=== PATIENT | male | born 1950 | race Caucasian/White ===

== ENCOUNTER 2017-01-08 10:30 | Emergency (ER) | payer MEDICARE ==
[2017-01-08 10:30] VITALS: BMI 21.5
[2017-01-08 11:17] VITALS: BP 138/76; PULSE 94; RESP 18; TEMP 98.1; O2SAT 97
--- NOTE | 2017-01-08 11:32 | ED PDOC ---
Upper Extremity Pain/Injury Time Seen by Provider: 01/08/17 11:32 Chief Complaint (Nursing): Upper Extremity Problem/Injury Chief Complaint (Provider): hand pain History Per: Patient Additional Complaint(s): Right-hand dominant male presents with pain and swelling to right hand status post injury 1 week ago. Patient states he was lifting heavy object and this caused injury to hand. Patient did not seek medical attention at that time and presents today with persistent pain and swelling. He is able to move all digits of right hand but has pain when doing so. Patient has not taken any meds for pain relief. Past Medical History Reviewed: Historical Data, Nursing Documentation, Vital Signs Vital Signs: Last Vital Signs Temp 98.1 F 01/08/17 11:13 Pulse 94 H 01/08/17 11:13 Resp 18 01/08/17 11:13 BP 138/76 01/08/17 11:13 Pulse Ox 97 01/08/17 11:13 - Medical History PMH: Anxiety, Asthma, COPD, Depression, HTN, Schizophrenia - Surgical History Surgical History: Appendectomy, Tonsillectomy - Family History Family History: States: No Known Family Hx - Living Arrangements Living Arrangements: With Family - Social History Current smoker - smoking cessation education provided: Yes Alcohol: None Drugs: Denies - Home Medications Home Medications: Ambulatory Orders Medication Instructions Recorded Lisinopril/Hydrochlorothiazide 1 tab PO DAILY 12/29/14 [Lisinopril-Hydrochlorothiazide 12.5 mg-10 mg] Metformin Hydrochloride [Metformin] 500 mg PO BID 12/29/14 Haloperidol [Haldol] 1 tab PO Q8 08/02/16 Ibuprofen [Motrin] 600 mg PO Q6 PRN #15 tab 01/08/17 - Allergies Allergies/Adverse Reactions: Allergies Allergy/AdvReac Type Severity Reaction Status Date / Time Penicillins Allergy RASH Verified 01/08/17 11:12 Review of Systems ROS Statement: Except As Marked, All Systems Reviewed And Found Negative Musculoskeletal: Positive for: Other (right hand injury ) Physical Exam - Reviewed Nursing Documentation Reviewed: Yes Vital Signs Reviewed: Yes - Physical Exam Appears: Positive for: Well, Non-toxic, No Acute Distress Skin: Negative for: Rash Eye Exam: Positive for: Normal appearance Extremity: Positive for: Other (Mild tenderness and swelling noted to dorsal aspect of right hand, full range of motion of all digits, normal distal sensation, normal capillary refill, no warmth to palpation, no cellulitis or open wounds, full rom right wrist with no snuff box tenderness) Neurologic/Psych: Positive for: Alert, Oriented - ECG O2 Sat by Pulse Oximetry: 97 Pulse Ox Interpretation: Normal - Other Rad right hand x-ray X-Ray: Interpreted by Me, Viewed By Me X-Ray Interpretation: no fx, no dis Medical Decision Making Medical Decision Makin66 year old with pain and swelling to right hand Plan: PO motrin X-ray right hand X-ray negative. Rx motrin given for pain, Referral given to hand bridge/structure inspection team leader for follow up. Nahum wrap/brace to hand was declined by patient. Disposition - Clinical Impression Clinical Impression: Hand contusion - Patient ED Disposition Is Patient to be Admitted: No Counseled Patient/Family Regarding: Studies Performed, Diagnosis, Need For Followup, Rx Given - Disposition Referrals: Rommel Montes MD [Medical Doctor] - Disposition: Routine/Home Disposition Time: 12:49 Condition: STABLE Additional Instructions: Ice, rest and elevate affected area. Take prescription meds as directed as needed for pain. Follow up with hand specialist or primary doctor for any persistent symptoms. Prescriptions: Ibuprofen [Motrin] 600 mg PO Q6 PRN #15 tab PRN Reason: Pain, Moderate (4-7) Instructions: Contusion in Adults (DC), Hand Sprain (ED)
--- NOTE | 2017-01-08 13:23 | RAD ---
PROCEDURE: Right Hand Radiographs. HISTORY: trauma COMPARISON: None. FINDINGS: BONES: Normal. No fracture. JOINTS: Normal. No osteoarthritic changes. SOFT TISSUES: Normal. OTHER FINDINGS: None. IMPRESSION: Normal right hand radiographs.
== END 2017-01-08 13:13 | disposition home or self-care (01) ==
LOC: H.ER 10:30
DX: S60.221A Contusion of right hand, initial encounter (principal); X50.0XXA Overexertion from strenuous movement or load, initial encounter; I10 Essential (primary) hypertension; F17.210 Nicotine dependence, cigarettes, uncomplicated; Z88.0 Allergy status to penicillin

== ENCOUNTER 2017-03-12 11:06 | Emergency (ER) | payer MEDICARE ==
[2017-03-12 11:21] VITALS: BP 133/83; PULSE 91; RESP 16; TEMP 98.3; O2SAT 99; BMI 21.3
--- NOTE | 2017-03-12 12:04 | ED PDOC ---
HPI: Skin/Bite Injury Time Seen by Provider: 03/12/17 11:28 Chief Complaint (Nursing): Male Genitourinary Chief Complaint (Provider): Rectal pain History Per: Patient History/Exam Limitations: no limitations Onset/Duration Of Symptoms: Days (x 3 days) Current Symptoms Are (Timing): Still Present Additional Complaint(s): Rome Funes is a 66-year-old male with a history of hemorrhoids who presents to the emergency department with complains of rectal pain and swelling , ongoing x 3 days. Patient denies bleeding. He admits to taking Preparation H without relief of symptoms. PMD: Past Medical History Reviewed: Historical Data, Nursing Documentation, Vital Signs Vital Signs: Last Vital Signs Temp 98.3 F 03/12/17 11:20 Pulse 91 H 03/12/17 11:20 Resp 16 03/12/17 11:20 BP 133/83 03/12/17 11:20 Pulse Ox 99 03/12/17 13:12 - Medical History PMH: Anxiety, Asthma, COPD, Depression, HTN, Schizophrenia Denies: Chronic Kidney Disease Other PMH: Hemorrhoids - Surgical History Surgical History: Appendectomy, Tonsillectomy - Family History Family History: States: Unknown Family Hx - Immunization History Hx Tetanus Toxoid Vaccination: No Hx Influenza Vaccination: No Hx Pneumococcal Vaccination: No - Home Medications Home Medications: Ambulatory Orders Medication Instructions Recorded Lisinopril/Hydrochlorothiazide 1 tab PO DAILY 12/29/14 [Lisinopril-Hydrochlorothiazide 12.5 mg-10 mg] Metformin Hydrochloride [Metformin] 500 mg PO BID 12/29/14 Haloperidol [Haldol] 1 tab PO Q8 08/02/16 Ibuprofen [Motrin] 600 mg PO Q6 PRN #15 tab 01/08/17 Hydrocortisone 2.5% (Rectal) 30 applic [place] BID PRN #1 tube 03/12/17 [Anusol-HC] - Allergies Allergies/Adverse Reactions: Allergies Allergy/AdvReac Type Severity Reaction Status Date / Time Penicillins Allergy RASH Verified 01/08/17 11:12 Review of Systems ROS Statement: Except As Marked, All Systems Reviewed And Found Negative Genitourinary Male: Positive for: Other (Rectal pain and swelling) Physical Exam - Reviewed Nursing Documentation Reviewed: Yes Vital Signs Reviewed: Yes - Physical Exam Appears: Positive for: Well, Non-toxic, No Acute Distress Head Exam: Positive for: ATRAUMATIC, NORMAL INSPECTION, NORMOCEPHALIC Skin: Positive for: Normal Color, Warm, Dry Eye Exam: Positive for: Normal appearance Neck: Positive for: Normal, Painless ROM, Supple Cardiovascular/Chest: Positive for: Regular Rate, Rhythm Respiratory: Positive for: CNT, Normal Breath Sounds Gastrointestinal/Abdominal: Positive for: Normal Exam, Bowel Sounds, Soft. Negative for: Tenderness Rectal: Positive for: Hemorrhoids (Multiple external hemorrhoids, non-thrombosed ). Negative for: Normal Exam, Other (discharge and bleeding) Extremity: Positive for: Normal ROM Neurologic/Psych: Positive for: Alert, Oriented - ECG O2 Sat by Pulse Oximetry: 99 (RA) Pulse Ox Interpretation: Normal Medical Decision Making Medical Decision Making: Time: 12:30 Initial Impression: Hemorrhoids Initial Plan: * Hydrocortisone 25 mg MT * Disposition Time: 13:04 Upon provider evaluation patient is feeling better, medically stable, and requires no further treatment in the ED at this time. Patient will be discharged home with Rx for Hydrocortisone 2.5% MT. Counseling was provided and all questions were answered regarding diagnosis and need for follow up. There is agreement to discharge plan. Return if symptoms persist or worsen. Scribe Attestation: Documented by Lizzeth Molina, acting as a scribe for Deyanira Michael MD. Provider Scribe Attestation: All medical record entries made by the Scribe were at my direction and personally dictated by me. I have reviewed the chart and agree that the record accurately reflects my personal performance of the history, physical exam, medical decision making, and the department course for this patient. I have also personally directed, reviewed, and agree with the discharge instructions and disposition. Disposition - Clinical Impression Clinical Impression: Hemorrhoids, external - Patient ED Disposition Is Patient to be Admitted: No Doctor Will See Patient In The: Office - Disposition Referrals: [facility] [Outside] Disposition: Routine/Home Disposition Time: 13:04 Condition: STABLE Prescriptions: Hydrocortisone 2.5% (Rectal) [Anusol-HC] 30 applic [place] BID PRN #1 tube PRN Reason: Hemorrhoids Instructions: Hemorrhoids (ED)
[2017-03-12] MEDS ORDERED: Anusol Suppository ONE (12:16)
== END 2017-03-12 12:35 | disposition home or self-care (01) ==
LOC: H.ER 11:06
DX: K64.8 Other hemorrhoids (principal); F20.9 Schizophrenia, unspecified; F32.9 Major depressive disorder, single episode, unspecified; F41.9 Anxiety disorder, unspecified; I10 Essential (primary) hypertension; Z79.84 Long term (current) use of oral hypoglycemic drugs; Z88.0 Allergy status to penicillin

== ENCOUNTER 2017-12-12 10:57 | Emergency (ER) | payer MEDICARE ==
[2017-12-12 11:02] VITALS: BMI 22.3
[2017-12-12 11:03] VITALS: TEMP 97.8; O2SAT 99
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
--- NOTE | 2017-12-12 14:29 | RAD ---
PROCEDURE: Pelvis, right hip HISTORY: Right hip pain COMPARISON: None TECHNIQUE: Standard protocol for this study/examination. FINDINGS: There are no osseous abnormalities to suggest fracture. The pelvic ring is intact. Preserved femoral-acetabular relationship. Negative study for protrusio, subluxation or dislocation. Degenerative changes: Mild. IMPRESSION: No acute findings related to/accounting for the clinical presentation.
[2017-12-12 14:44] VITALS: BP 128/78; PULSE 88; RESP 18
== END 2017-12-12 14:44 | disposition home or self-care (01) ==
LOC: SUPCPDRO 10:57 → H.ER 10:57
DX: R10.30 Lower abdominal pain, unspecified (principal); I10 Essential (primary) hypertension; E11.9 Type 2 diabetes mellitus without complications; Z79.84 Long term (current) use of oral hypoglycemic drugs; Z88.0 Allergy status to penicillin

== ENCOUNTER 2018-04-08 22:03 | Emergency (ER) | payer MEDICARE ==
[2018-04-08 22:06] VITALS: BMI 22.3
[2018-04-08 22:41] VITALS: BP 160/77; PULSE 80; RESP 16; TEMP 98.3; O2SAT 97
--- NOTE | 2018-04-08 22:47 | ED PDOC ---
HPI: General Adult Time Seen by Provider: 04/08/18 22:46 Chief Complaint (Nursing): Medical Clearance Chief Complaint (Provider): eval History Per: Patient Additional Complaint(s): 67-year-old male presents to emergency department requesting IM administration of Haldol. Patient presents with his own medication and states he just needs someone to administer it. He offers no other complaints or issues at this time. Past Medical History Reviewed: Historical Data, Nursing Documentation, Vital Signs Vital Signs: Last Vital Signs Temp 98.3 F 04/08/18 22:40 Pulse 80 04/08/18 22:40 Resp 16 04/08/18 22:40 BP 160/77 H 04/08/18 22:40 Pulse Ox 97 04/08/18 23:18 - Medical History PMH: Anxiety, Asthma, COPD, Depression, HTN, Schizophrenia - Surgical History Surgical History: Appendectomy, Tonsillectomy - Family History Family History: States: No Known Family Hx - Social History Current smoker - smoking cessation education provided: No Alcohol: None Drugs: Denies - Home Medications Home Medications: Ambulatory Orders Medication Instructions Recorded Lisinopril/Hydrochlorothiazide 1 tab PO DAILY 12/29/14 [Lisinopril-Hydrochlorothiazide 12.5 mg-10 mg] Metformin Hydrochloride [Metformin] 500 mg PO BID 12/29/14 Haloperidol [Haldol] 1 tab PO Q8 08/02/16 Ibuprofen [Motrin] 600 mg PO Q6 PRN #15 tab 01/08/17 Hydrocortisone 2.5% (Rectal) 30 applic [place] BID PRN #1 tube 03/12/17 [Anusol-HC] - Allergies Allergies/Adverse Reactions: Allergies Allergy/AdvReac Type Severity Reaction Status Date / Time Penicillins Allergy RASH Verified 01/08/17 11:12 Review of Systems ROS Statement: Except As Marked, All Systems Reviewed And Found Negative Constitutional: Negative for: Fever Cardiovascular: Negative for: Chest Pain Respiratory: Negative for: Cough Gastrointestinal: Negative for: Nausea, Vomiting Psych: Negative for: Suicidal ideation Physical Exam - Reviewed Nursing Documentation Reviewed: Yes Vital Signs Reviewed: Yes - Physical Exam Appears: Positive for: Well, Non-toxic, No Acute Distress Skin: Positive for: Normal Color. Negative for: Rash Eye Exam: Positive for: Normal appearance Cardiovascular/Chest: Positive for: Regular Rate, Rhythm Respiratory: Positive for: Normal Breath Sounds Neurologic/Psych: Positive for: Alert, Oriented - ECG O2 Sat by Pulse Oximetry: 97 Pulse Ox Interpretation: Normal Medical Decision Making Medical Decision Makin-year-old male here for medication administration. IM Haldol was administered by RN. Patient denies suicidal or homicidal ideation, he declines crisis consult at this time. Patient is stable for discharge. Disposition - Clinical Impression Clinical Impression: Medication administered - Patient ED Disposition Is Patient to be Admitted: No Counseled Patient/Family Regarding: Need For Followup - Disposition Referrals: [facility] [Outside] Disposition: Routine/Home Disposition Time: 23:16 Condition: STABLE Additional Instructions: Follow up with primary care doctor Instructions: Haloperidol, General (DC) Forms: [employer] (Upper Sorbian)
[2018-04-08] MEDS: Home Med 1 UNIT IM STA (23:21)
== END 2018-04-08 23:05 | disposition home or self-care (01) ==
LOC: H.ER 22:03
DX: Z51.81 Encounter for therapeutic drug level monitoring (principal); F20.9 Schizophrenia, unspecified; Z79.84 Long term (current) use of oral hypoglycemic drugs; Z88.0 Allergy status to penicillin

== ENCOUNTER 2018-05-14 01:22 | Emergency (ER) | payer MEDICARE ==
[2018-05-14 01:23] VITALS: BMI 22.3
[2018-05-14 01:47] VITALS: RESP 16
--- NOTE | 2018-05-14 02:53 | ED PDOC ---
HPI: General Adult Time Seen by Provider: 05/14/18 02:10 Chief Complaint (Nursing): Altered Mental Status Chief Complaint (Provider): Altered Mental Status History Per: Patient History/Exam Limitations: no limitations Onset/Duration Of Symptoms: Hrs Additional Complaint(s): Rome Glasgow is a 67 year old male with a past medical history of chronic anemia and schizophrenia who is presenting to the ED for evaluation. Patient states that he mistakenly read bedside clock as 7 am and reported to his meeting scheduled the next day at [facility]. He admits that he began walking to the clinic and upon arrival, he realized that it was not 7 am. Patient presents to the ED asking if he could wait in the ER until the morning so he could make his meeting. PMD: George Bear Past Medical History Reviewed: Historical Data, Nursing Documentation, Vital Signs Vital Signs: Last Vital Signs Temp 97.6 F 05/14/18 05:50 Pulse 64 05/14/18 05:50 Resp 16 05/14/18 05:50 BP 148/76 05/14/18 05:50 Pulse Ox 100 05/14/18 06:22 - Medical History PMH: Anemia, Anxiety, Asthma, COPD, Depression, HTN, Schizophrenia Denies: HIV, Chronic Kidney Disease - Surgical History Surgical History: Appendectomy, Tonsillectomy - Family History Family History: States: Unknown Family Hx - Social History Current smoker - smoking cessation education provided: No Alcohol: None Drugs: Denies - Immunization History Hx Tetanus Toxoid Vaccination: No Hx Influenza Vaccination: No Hx Pneumococcal Vaccination: No - Home Medications Home Medications: Ambulatory Orders Medication Instructions Recorded Haloperidol Lactate [Haldol] 50 mg IM QWK 05/07/18 Lisinopril/Hydrochlorothiazide 1 tab PO DAILY 05/07/18 [Lisinopril-Hctz 20-25 mg Tab] Memantine HCl/Donepezil HCl 1 cap PO DAILY 05/07/18 [Namzaric 28 mg-10 mg Capsule] Olanzapine [Olanzapine Odt] 20 mg PO HS 05/07/18 [id number] Ethyl Esters 1 GM 1 sgl PO DAILY 05/07/18 [Lovaza] metFORMIN [glucOPHAGE] 500 mg PO BID 05/07/18 Ferrous Sulfate [Feosol] 325 mg PO DAILY #30 tab 05/08/18 - Allergies Allergies/Adverse Reactions: Allergies Allergy/AdvReac Type Severity Reaction Status Date / Time Penicillins Allergy RASH Verified 05/14/18 01:47 Review of Systems ROS Statement: Except As Marked, All Systems Reviewed And Found Negative Physical Exam - Reviewed Nursing Documentation Reviewed: Yes Vital Signs Reviewed: Yes - Physical Exam Appears: Positive for: Well, Non-toxic, No Acute Distress Head Exam: Positive for: ATRAUMATIC, NORMAL INSPECTION, NORMOCEPHALIC Skin: Positive for: Normal Color, Warm, DRY Eye Exam: Positive for: EOMI, Normal appearance, PERRL ENT: Positive for: Normal ENT Inspection Neck: Positive for: Normal, Painless ROM Cardiovascular/Chest: Positive for: Regular Rate, Rhythm Respiratory: Positive for: CNT, Normal Breath Sounds Gastrointestinal/Abdominal: Positive for: Normal Exam, Soft Back: Positive for: Normal Inspection Extremity: Positive for: Normal ROM Neurologic/Psych: Positive for: Alert, Oriented - ECG O2 Sat by Pulse Oximetry: 100 (RA) Pulse Ox Interpretation: Normal Medical Decision Making Medical Decision Making: Time: 2:55 Impression: 67 year old male with schizophrenia Upon provider evaluation patient is medically stable, and requires no treatment in the ED at this time. Patient will be discharged home. Counseling was provided and all questions were answered. There is agreement to discharge plan. 6:22 Patient remained stable throughout the night in the ED. Dr. Harp made arrangements for patient to be seen for follow up in the clinic today. Upon provider evaluation patient is medically stable, and requires no further treatment in the ED at this time. Patient will be discharged home. Counseling was provided and all questions were answered regarding diagnosis and need for follow up with the clinic/PMD. There is agreement to discharge plan. Return if symptoms persist or worsen. Scribe Attestation: Documented by Hanna Geller, acting as a scribe for Will Gudino MD. Provider Scribe Attestation: All medical record entries made by the Scribe were at my direction and personally dictated by me. I have reviewed the chart and agree that the record accurately reflects my personal performance of the history, physical exam, medical decision making, and the department course for this patient. I have also personally directed, reviewed, and agree with the discharge instructions and disposition. Disposition - Clinical Impression Clinical Impression: Schizophrenia - Patient ED Disposition Is Patient to be Admitted: No - Disposition Referrals: George Bear MD [Primary Care Provider] - Disposition: Routine/Home Disposition Time: 06:23 Condition: STABLE Additional Instructions: Please follow up today at 11am with Dr Hammond at the [facility] Instructions: Schizophrenia Forms: [facility] ([place]atemalan)
[2018-05-14 06:22] VITALS: O2SAT 100
[2018-05-14 06:55] VITALS: BP 138/72; PULSE 74; TEMP 97.9
== END 2018-05-14 06:40 | disposition home or self-care (01) ==
LOC: H.ER 01:22
DX: F20.9 Schizophrenia, unspecified (principal); I10 Essential (primary) hypertension; Z88.0 Allergy status to penicillin; Z86.59 Personal history of other mental and behavioral disorders; J44.9 Chronic obstructive pulmonary disease, unspecified